=== PATIENT | male | born 1960 | race Caucasian/White ===

== ENCOUNTER 2017-05-22 01:50 | Emergency (ER) | payer OTHER ==
[~2017-05-22] VITALS: Ht 172.7 cm; Wt 90.7 kg
[~2017-05-22 01:50] MED LIST: PREDNISONE20 M1 PO; PROVENTIL HFA6.7 GM INH
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
[2017-05-22] MEDS ORDERED: NEXIUM40 M1 PO (01:58)
[2017-05-22] MEDS ORDERED: LOSARTAN POTASS25 M1 PO (01:59)
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
[2017-05-22 03:48] VITALS: BP 118/65
[2017-05-22] MEDS ORDERED: CYCLOBENZAPRINE10 M1 PO (03:59)
[2017-05-22] MEDS ORDERED: IBUPROFEN800 M1 PO (03:59)
== END 2017-05-22 04:02 ==
LOC: ERH 01:50
DX: S09.90XA Unspecified injury of head, initial encounter (principal); I71.9 Aortic aneurysm of unspecified site, without rupture; R07.89 Other chest pain; V49.60XA Unspecified car occupant injured in collision with unspecified motor vehicles in traffic accident, initial encounter; Y92.410 Unspecified street and highway as the place of occurrence of the external cause
CPT/HCPCS: 74176; 93005; 93010; G0480

== ENCOUNTER 2017-05-23 13:14 | Emergency (ER) | payer OTHER ==
[~2017-05-23] VITALS: Ht 172.7 cm; Wt 88.5 kg
[~2017-05-23 13:14] MED LIST changes: +CYCLOBENZAPRINE10 M1 PO; +IBUPROFEN800 M1 PO; +LOSARTAN POTASS25 M1 PO; +NEXIUM40 M1 PO
[2017-05-23 13:27] VITALS: BP 145/84
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
[2017-05-24] MEDS ORDERED: FLOMAX0.4 M1 (16:42)
== END 2017-05-23 16:29 | disposition admitted as inpatient to this hospital (09) ==
LOC: ERH 13:14
DX: R19.5 Other fecal abnormalities (principal)
CPT/HCPCS: 87045; 99281

== ENCOUNTER 2017-05-24 15:54 | Emergency (ER) | payer OTHER ==
[~2017-05-24] VITALS: Ht 172.7 cm; Wt 88.5 kg
[2017-05-24 16:01] VITALS: BP 142/93
[2017-05-24] MEDS ORDERED: FLOMAX0.4 M1 (16:42)
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
[2017-05-24 17:04] LABS: ABSOLUTE BASOPHIL COUNT 0 /CUMM (0.0-0.2); ABSOLUTE EOSINOPHIL COUNT 0.2 /CUMM (0.0-0.7); ABSOLUTE GRANULOCYTE CT 7.7 /CUMM (1.4-6.5); ABSOLUTE LYMPH COUNT 3.2 /CUMM (1.2-3.4); ABSOLUTE MONOCYTE COUNT 0.9 /CUMM (0.10-0.60); BASOPHIL % 0.4 % (0.0-2.0); HEMATOCRIT 46.2 % (42-52); MEAN CORPUSCULAR HGB 33.2 PG (27.0-31.0); MEAN CORPUSCULAR HGB CONC 34.5 G/DL (33.0-37.0); MEAN CORPUSCULAR VOLUME 96.3 FL (80.0-94.0); MEAN PLATELET VOLUME 9.8 FL (7.4-10.4); PLATELET COUNT 197 /CUMM (130-400); RBC DISTRIBUTION WIDTH 13.3 % (11.5-14.5)
[2017-05-24 17:12] LABS: PT 10.2 SEC (9.4-12.5); PTT 30 SEC (25-37)
--- NOTE | 2017-05-24 18:26 | CT SCAN REPORT ---
EXAMINATION: CT ABDOMEN AND PELVIS WITH CONTRAST CLINICAL INFORMATION: Abnormal stooling. Abdominal pain. COMPARISON: None. TECHNIQUE: Contiguous axial thin section helical images of the abdomen and pelvis were performed following the administration of 95 mL of intravenous Optiray 320. The data set was reformatted in the coronal and sagittal planes and reviewed on an independent workstation. DLP: 351 mGy-cm. FINDINGS: The visualized lung bases are clear. The visualized portions of the heart are unremarkable. Adjacent to the distal esophagus, anteriorly, on image 60/712 and 64/129 on the sagittal reconstruction, is a 19 mm soft tissue mass which may be extrinsic The liver is of normal size and attenuation without focal lesions nor intrahepatic biliary ductal dilation. A normal gallbladder is identified. There is no wall thickening or discernible pericholecystic fluid. The spleen, pancreas, adrenal glands are unremarkable. Both kidneys are of normal size and attenuation without hydronephrosis or nephrolithiasis. Following the administration of IV contrast, prompt symmetric nephrograms are displayed. There is no abdominal free fluid. There is neither mesenteric nor retroperitoneal lymphadenopathy. Normal unopacified loops of small and large bowel are identified. There is no pelvic free fluid. The urinary bladder is unremarkable. There is neither pelvic nor inguinal lymphadenopathy. There are bilateral fat-containing inguinal hernias. Bone windows: Neither sclerotic nor lytic bone lesions are identified. IMPRESSION: No evidence for acute abdominal or pelvic inflammatory or infectious processes. 19 mm soft tissue mass adjacent to the distal esophagus. It is uncertain as to whether this is extrinsic or intramural. Consider correlation with endoscopy for further characterization.
== END 2017-05-24 18:42 ==
LOC: ERH 15:54
PROVIDERS: Physician Assistant Medical
DX: R19.7 Diarrhea, unspecified (principal); R22.1 Localized swelling, mass and lump, neck
CPT/HCPCS: 74177